=== PATIENT | female | born 1990 | race Caucasian/White ===

== ENCOUNTER 2017-05-22 09:59 | Day surgery (SDC) | payer OTHER ==
[~2017-05-22] VITALS: Ht 154.4 cm; Wt 79.8 kg
--- NOTE | ~2017-05-22 | OR ---
PATIENT'S NAME: KAYLA [facility] AGE: 26 Y [address] ROOM: [address] [address] LOCATION: [facility] [place] AD[place] DATE: 05/22/2017 OR/Procedure Report DISCHARGE DATE: FAMILY PHYSICIAN: PHYSICIAN, NO ATTENDING PHYSICIAN: Alayna PEREZ SURGEON: Alayna Perez MD VALUE ANALYST: DATE OF PROCEDURE: 05/22/2017 PREOPERATIVE DIAGNOSIS: Acute appendicitis. POSTOPERATIVE DIAGNOSIS: Acute appendicitis. PROCEDURE: Open appendectomy. ANESTHESIA: General endotracheal. INDICATIONS: The patient is a 26-year-old female, who presented with a 24- hour history of abdominal pain, followed by nausea and vomiting. CAT scan was done and interpreted as acute appendicitis. Risks and benefits of open appendectomy were discussed with the patient. Consent was obtained. PROCEDURE IN DETAIL: After anesthesia, the patient was prepped and draped in usual sterile fashion. A standard right lower quadrant muscle-splitting incision was made and the peritoneal cavity was entered. The appendix was identified it was thickened and inflamed. The mesentery of the appendix taken down between clamps and ligated. The appendix was then transected approximately 1 cm above the base of the cecum and sent to pathology. The appendix stump at the base was then ligated using 0 silk suture. The stump was using Z stitch. The operative field was then irrigated with several 100 mL of fluid. The abdomen was closed in layers using 2-0 Vicryl and then 0 Vicryl on the fascia. Every layer was copiously irrigated. The skin approximated using 4-0 Monocryl in running subcuticular fashion. This was dressed with sterile gauze. at the end of the procedure. At end of this procedure, sponge and needle counts were correct. Estimated blood loss was minimal. The patient was transferred to the PACU and extubated in stable condition. ALAYAN PEREZ MD CC/modl PATIENT'S NAME: JOHNS HOPKINS [facility] AGE: 26 Y [address] ROOM: [address] [place], [place] [address] LOCATION: [facility] [place] ADMIT DATE: 05/22/2017 OR/Procedure Report DISCHARGE DATE: FAMILY PHYSICIAN: DONAL RÍOS ATTENDING PHYSICIAN: Alayna PEREZ /[id number] d: 05/22/17 1721 t: 06/26/17 1524, OPERATIVE SUMMARY
[2017-05-22] MEDS ORDERED: ZOLOFT PO (10:21)
[2017-05-22] MEDS ORDERED: LAMICTAL200 MG PO (10:22)
--- NOTE | 2017-05-22 17:13 | NUR ---
Significant Event: Patient up to floor at 1445. Vitals started postop but not yet completed--see nurse to see what vitals are done. Patient had open appy, but did not have ruptured appy. Incision times one to right lower abdomen with only shadow drainage noted. Up with one assist and tolerated well. Did give patient regular diet but encouraged something light for supper. Percocet 1 tab given in PACU at 1349 and 1 tab given on floor at 1503. Step-mom at bedside. Patient alert/oriented and cooperative with cares. Follow up: Continue to monitor.
--- NOTE | 2017-05-23 04:01 | NUR ---
Significant Event: Patient alert and oriented X4. UP ad vivek in room. Walked in halls X2. R) lower abd incision. Seriousanguinous draingage noted. Percocet given at 0300. Pt still complaining of pain so 2 mg IVP morphine given at 0400. Slept on and off this shift. VSS and on RA. IV to R) wrist. Can saline lock when taking PO. IV mefoxin every 6 hours. Appy not ruptured. Follow up: Monitor dressing
[2017-05-23] MEDS ORDERED: PERCOCET 5-3251 EACH PO (14:48)
--- NOTE | 2017-05-23 15:16 | NUR ---
DISCHARGE: D: ORDERS RECEIVED FOR THE PATIENT TO BE DISCHARGED TODAY TO HOME. I: DISMISSAL INSTRUCTIONS WERE PREPARED AND REVIEWED WITH THE PATIENT AND HER FAMILY VIRTUALLY. THE FOLLOWING INFORMATION WAS DISCUSSED INCLUDING [employer] TEACHING SHEETS PROVIDED: APPENDIX REMOVAL, OPEN APPENDECTOMY, DISHCARGE INSTRUCITONS-CUSTOM, PERCOCET AND PREVENTING DVT. REVIEWED NEW PRESCRIPTIONS THAT SHE WILL NEED TO FILL AFTER DISCHARGE. ALSO, SIDE EFFECTS OF MEDICATION AND NOTE FROM MD WAS DISCUSSED. R: THE PATIENT VERBALIZED UNDERSTANDING OF THE DISMISSAL INSTRUCTIONS AT THE TIME OF TEACHING WITH NO FURTHER QUESTIONS. P: THE ABOVE INFORMATION WAS SHARED WITH THE PRIMARY NURSE AND THE CHARGE NURSE THAT THE PATIENT'S DISMISSAL EDUCATION WAS COMPLETED. THE PATIENT IS READY FOR DISCHARGE TO THE FRONT DOOR VIA WHEEL CHAIR BY NURSING STAFF.
--- NOTE | 2017-05-23 16:46 | NUR ---
Discharge note: Patient is alert and oriented. VSS. on room air. IV to right wrist dc'd with no complications. Copies of education and hospital dismissal instructions given to patient. Also given prescriptions and note for work. Pt to call for f/u appt with General surgeons in 1 wk. Dressing to right abd is intact, with shadow drainage. Gave percocet x2 for pain with relief today. Dad is here to take pt home. Pt was wheeled to [place] front doors for dismissal.
== END 2017-05-23 13:35 | disposition disaster alternative care site (69) ==
LOC: GSDC 09:59 → GMSU 09:59 → GSDC 05-23 13:35
PROC: 0DTJ0ZZ Resection of Appendix, Open Approach (ICD-10-PCS; principal; 2017-05-22)
DX: K35.80 Unspecified acute appendicitis (principal); F41.9 Anxiety disorder, unspecified; F32.9 Major depressive disorder, single episode, unspecified; I73.9 Peripheral vascular disease, unspecified; Z79.899 Other long term (current) drug therapy
CPT/HCPCS: J0690; J0694; J1100; J2250; J2270; J2405; J3010; J3480; J7030; J7040